=== PATIENT | female | born 1950 | race Hispanic/Latino ===

== ENCOUNTER 2016-08-06 12:59 | Emergency (ER) | payer MEDICARE ==
[2016-08-06 13:17] VITALS: RESP 20; TEMP 98.2; O2SAT 100
--- NOTE | 2016-08-06 13:39 | C.PDOC ---
History Of Present Illness 65 yr old female presents to the ER with PMHx of breast cancer, diagnosed in November 2015, had a course of chemo but the cancer persisted and has been on chemo theraphy for the last 7 weeks (unaware of chemo name). Patient states she has been feeling fine till 1 week ago when she developed a burning sensation to both hands, was prescribed Topamax by her doctor but states the symptom continued and last night she started to develop numbness along the edge of her lower lip. Patient states she looked up her symptoms online and was suggested it could be related to a stoke and decided to come in to the ED. Patient denies fever, chills, vision changes, chest pain, SOB, nausea, vomiting, abdominal pain , diarrhea, constipation, slurred speech, motor deficits, focal deficits, headache, weakness or numbness. Time Seen by Provider: 08/06/16 13:18 Chief Complaint (Nursing): Weakness/Neurological Deficit History Per: Patient History/Exam Limitations: no limitations Onset/Duration Of Symptoms: Sudden Onset (Last night ) Past Medical History Reviewed: Historical Data, Nursing Documentation, Vital Signs Vital Signs: Last Vital Signs Temp 98.2 F 08/06/16 13:16 Pulse 102 H 08/06/16 13:16 Resp 20 08/06/16 13:16 BP 146/91 H 08/06/16 13:16 Pulse Ox 100 08/06/16 13:44 Family History: States: No Known Family Hx Review Of Systems Except As Marked, All Systems Reviewed And Found Negative. Constitutional: Negative for: Fever, Chills Eyes: Negative for: Vision Change ENT: Positive for: Other ((+) Numbness along the edge of lower lip) Cardiovascular: Negative for: Chest Pain Respiratory: Negative for: Shortness of Breath Gastrointestinal: Negative for: Nausea, Vomiting, Abdominal Pain, Diarrhea, Constipation Musculoskeletal: Positive for: Other ((+) Burning sensation to the bilateral hands) Neurological: Negative for: Weakness, Numbness Physical Exam - Physical Exam Appears: Well, Non-toxic, No Acute Distress Skin: Warm, Dry, No Rash Head: Atraumatic, Normacephalic Eye(s): bilateral: Normal Inspection, PERRL, EOMI Nose: Normal Oral Mucosa: Moist Lips: Normal Appearing, No Swelling, No Contusion, No Abrasion, No Laceration, No Lesions Gingiva: Normal Appearing, No Erythema, No Ulceration Throat: Normal, No Erythema, No Exudate Neck: Normal, Normal ROM, Supple Chest: Symmetrical, No Tenderness Cardiovascular: Rhythm Regular, No Murmur Respiratory: Normal Breath Sounds, No Rales, No Rhonchi, No Stridor, No Wheezing Gastrointestinal/Abdominal: Normal Exam, Soft, No Tenderness, No Guarding, No Rebound Extremity: Normal ROM, No Swelling Neurological/Psych: Oriented x3, Normal Speech, Normal Motor ED Course And Treatment - Laboratory Results Result Diagrams: 08/06/16 14:13 08/06/16 14:13 Lab Interpretation: No Acute Changes O2 Sat by Pulse Oximetry: 100 Pulse Ox Interpretation: Normal - CT Scan/US Head Other Rad Studies (CT/US): Read By Radiologist, Radiology Report Reviewed CT/US Interpretation: Accession No. : [id number]. Patient Name / ID : BIB [id number] / [id number]. Exam Date : 08/06/2016 14:17:04 ( Approved ). Study Comment : Sex / Age : F / 65Y. Creator : Stephanie Bautista MD. Dictator : Stephanie Bautista MD. Cylinder Steamer : Oral Hygienist : Stephanie Bautista MD. Approver2 : Report Date : 08/06/2016 14:49:58. My Comment : . PROCEDURE: CT HEAD WITHOUT CONTRAST. HISTORY: R/O Bleed. COMPARISON: None available. TECHNIQUE: Axial computed tomography images were obtained through the head/brain without intravenous contrast. Radiation dose: Total exam DLP = 926.73 mGy-cm. This CT exam was performed using one or more of the following dose reduction techniques: Automated exposure control, adjustment of the mA and/or kV according to patient size, and/or use of iterative reconstruction technique. FINDINGS: HEMORRHAGE: No intracranial hemorrhage. BRAIN: No mass effect, midline shift, or edema. Approximately 9 x 8 mm extra- axial calcification at the left vertex (posterior frontal region) favored to reflect dural based calcification, less likely incidental meningioma. Scattered periventricular and subcortical white matter hypodensities, which are nonspecific, but often seen with chronic microvascular ischemic disease. Please note that MRI with diffusion imaging is more sensitive in the detection of acute ischemic event. VENTRICLES: No hydrocephalus. CALVARIUM: Unremarkable. PARANASAL SINUSES: Unremarkable as visualized. No significant inflammatory changes. MASTOID AIR CELLS: Unremarkable as visualized. No inflammatory changes. OTHER FINDINGS: Streak artifact from external artifact limits evaluation. IMPRESSION: Nonspecific white matter changes. Please note that MRI with diffusion imaging is more sensitive in the detection of acute ischemic event. Approximately 9 x 8 mm extra-axial calcification at the left vertex (posterior frontal region) favored to reflect dural based calcification, less likely incidental meningioma. This would not account for patient's presenting symptoms. 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 I have reviewed the chart and agree that the record accurately reflects my personal performance of the history, physical exam, medical decision making, and the department course for this patient. I have also personally directed, reviewed, and agree with the discharge instructions and disposition.
[2016-08-06 14:23] LABS: BASO # 0.1 K/uL (0.0-0.2); BASO % 2.6 % (0.0-2.0); EOS # 0.1 K/uL (0.0-0.7); EOS % 1.2 % (0.0-4.0); HEMATOCRIT 34.8 % (34.0-47.0); LYMPH # 0.9 K/uL (1.0-4.3); MEAN CELL VOLUME 94.8 fL (81.0-99.0); MEAN CORPUSCULAR HEMOGLOBIN 30.4 pg (27.0-31.0); MEAN CORPUSCULAR HGB CONC 32.1 g/dL (33.0-37.0); MONO # 0.1 K/uL (0.0-0.8); MONO % 2.5 % (0.0-10.0); NRBC % 0.2 % (0.0-2.0); RED CELL DISTRIBUTION WIDTH 15.7 % (11.5-14.5); WHITE BLOOD COUNT 5.1 K/uL (4.8-10.8)
[2016-08-06 14:30] LABS: CHLORIDE 106 mmol/L (98-107)
[2016-08-06 14:31] LABS: POTASSIUM 4.9 mmol/L (3.6-5.2); SODIUM 139 mmol/L (132-148)
[2016-08-06 14:33] LABS: ALB/GLOB RATIO 1.2 (1.0-2.1); ALKALINE PHOSPHATASE 48 U/L (38-126); ALT/SGPT 32 U/L (9-52); AST/SGOT 33 U/L (14-36); BLOOD UREA NITROGEN 17 mg/dL (7-17); CARBON DIOXIDE 21 mmol/L (22-30); GFR AFRICAN-AMERICAN > 60; GLUCOSE,RANDOM 125 mg/dL (65-105); TOTAL PROTEIN 7.4 g/dL (6.3-8.3); URINE BILIRUBIN NEGATIVE (NEGATIVE); URINE BLOOD NEGATIVE (NEGATIVE); URINE COLOR Yellow (YELLOW); URINE GLUCOSE (UA) NORMAL (Normal); URINE KETONE NEGATIVE (NEGATIVE); URINE LEUKOCYTE ESTERASE NEG Leu/uL (Negative); URINE PROTEIN NEGATIVE (NEGATIVE); URINE UROBILINOGEN NORMAL mg/dL (0.2-1.0); WBC URINE 1 /hpf (0-5)
[2016-08-06 14:34] LABS: CALCIUM 9.1 mg/dl (8.6-10.4); MAGNESIUM 1.6 mg/dL (1.6-2.3)
--- NOTE | 2016-08-06 14:51 | CT ---
PROCEDURE: CT HEAD WITHOUT CONTRAST. HISTORY: R/O Bleed COMPARISON: None available. TECHNIQUE: Axial computed tomography images were obtained through the head/brain without intravenous contrast. Radiation dose: Total exam DLP = 926.73 mGy-cm. This CT exam was performed using one or more of the following dose reduction techniques: Automated exposure control, adjustment of the mA and/or kV according to patient size, and/or use of iterative reconstruction technique. FINDINGS: HEMORRHAGE: No intracranial hemorrhage. BRAIN: No mass effect, midline shift, or edema. Approximately 9 x 8 mm extra-axial calcification at the left vertex (posterior frontal region) favored to reflect dural based calcification, less likely incidental meningioma. Scattered periventricular and subcortical white matter hypodensities, which are nonspecific, but often seen with chronic microvascular ischemic disease. Please note that MRI with diffusion imaging is more sensitive in the detection of acute ischemic event. VENTRICLES: No hydrocephalus. CALVARIUM: Unremarkable. PARANASAL SINUSES: Unremarkable as visualized. No significant inflammatory changes. MASTOID AIR CELLS: Unremarkable as visualized. No inflammatory changes. OTHER FINDINGS: Streak artifact from external artifact limits evaluation. IMPRESSION: Nonspecific white matter changes. Please note that MRI with diffusion imaging is more sensitive in the detection of acute ischemic event. Approximately 9 x 8 mm extra-axial calcification at the left vertex (posterior frontal region) favored to reflect dural based calcification, less likely incidental meningioma. This would not account for patient's presenting symptoms.
[2016-08-06 15:25] VITALS: BP 130/74; PULSE 74
== END 2016-08-06 15:24 | disposition home or self-care (01) ==
LOC: C.ER 12:59
DX: G62.0 Drug-induced polyneuropathy (principal)

== ENCOUNTER 2016-08-14 15:07 | Emergency (ER) | payer MEDICARE ==
--- NOTE | 2016-08-14 17:05 | C.PDOC ---
History Of Present Illness Pt c/o swelling of her RUE. Time Seen by Provider: 08/14/16 16:46 Chief Complaint (Nursing): Upper Extremity Problem/Injury History Per: Patient Onset/Duration Of Symptoms: Hrs (noticed upon waking up this morning.) Current Symptoms Are (Timing): Still Present Quality: Other (Swelling) Severity: Moderate Additional History Per: Prior Records Past Medical History Reviewed: Historical Data, Nursing Documentation, Vital Signs Vital Signs: Last Vital Signs Temp 98.5 F 08/14/16 15:28 Pulse 115 H 08/14/16 15:28 Resp 20 08/14/16 15:28 BP 157/94 H 08/14/16 15:28 Pulse Ox 100 08/14/16 17:07 - Medical History PMH: Malignancy Other Surgeries: Lymph node removal from right axilla about 4 months ago. Family History: States: Unknown Family Hx - Social History Hx Alcohol Use: Yes Hx Substance Use: No - Immunization History Hx Tetanus Toxoid Vaccination: No Hx Influenza Vaccination: Yes Hx Pneumococcal Vaccination: No Review Of Systems Except As Marked, All Systems Reviewed And Found Negative. Constitutional: Negative for: Fever, Weakness Cardiovascular: Negative for: Chest Pain Respiratory: Negative for: Shortness of Breath Gastrointestinal: Negative for: Vomiting, Abdominal Pain Musculoskeletal: Negative for: Neck Pain, Arm Pain Skin: Negative for: Rash Neurological: Negative for: Weakness, Seizures, Altered Mental Status Physical Exam - Physical Exam Appears: Non-toxic, No Acute Distress Skin: Normal Color, Warm, Dry Head: Atraumatic, Normacephalic Eye(s): bilateral: PERRL, EOMI Neck: Normal ROM, Supple Cardiovascular: Rhythm Regular Respiratory: Normal Breath Sounds, No Accessory Muscle Use Gastrointestinal/Abdominal: Soft, No Tenderness Extremity: Normal ROM, No Pedal Edema, Capillary Refill (wnl), No Deformity, Swelling (edema of right upper extremity.) Extremity: Bilateral: Normal Color And Temperature Pulses: Right Radial: Normal Neurological/Psych: Oriented x3, Normal Motor, Normal Sensation ED Course And Treatment O2 Sat by Pulse Oximetry: 100 Pulse Ox Interpretation: Normal Medical Decision Making Medical Decision Making: Pt most like has lympedema due to the previous axillary lymph node removal. I want to orders a RUE duplex to r/o DVT, however it is not available at this time. I instructed the pt to f/up with her doctor or return here in the morning to get the test done. Disposition Counseled Patient/Family Regarding: Diagnosis, Need For Followup - Disposition Referrals: Oumar Woodard DO [Staff Provider] - Carin Painting MD [Staff Provider] - Disposition: HOME/ ROUTINE Disposition Time: 17:14 Condition: FAIR Additional Instructions: Elevate your right arm. Follow up with your doctor for further evaluation and treatment, including an ultrasound to rule out a blood clot. Return to the ER if you develop redness, pain, worsening of symptoms or if you have any other concerns. Instructions: Lymphedema (ED) - Clinical Impression Clinical Impression: Lymphedema of right upper extremity
[2016-08-14 17:24] VITALS: BP 114/77; PULSE 98; RESP 18; TEMP 98.6; O2SAT 97
== END 2016-08-14 17:30 | disposition home or self-care (01) ==
LOC: C.ER 15:07
DX: I89.0 Lymphedema, not elsewhere classified (principal)

== ENCOUNTER 2018-01-09 08:51 | Day surgery (SDC) | payer MEDICARE ==
[2018-01-07 09:18] VITALS: BMI 35.2
[2018-01-07 10:59] LABS: BASO # 0.1 K/uL (0.0-0.2); BASO % 0.9 % (0.0-2.0); EOS # 0.2 K/uL (0.0-0.7); EOS % 2.2 % (0.0-4.0); HEMOGLOBIN 13.3 g/dL (11.0-16.0); LYMPH # 2.6 K/uL (1.0-4.3); MEAN CELL VOLUME 94.8 fL (81.0-99.0); MEAN CORPUSCULAR HEMOGLOBIN 32.4 pg (27.0-31.0); MEAN CORPUSCULAR HGB CONC 34.2 g/dL (33.0-37.0); MEAN PLATELET VOLUME 9.5 fL (7.2-11.7); MONO # 0.4 K/uL (0.0-0.8); MONO % 5.2 % (0.0-10.0); NEUT # 5.1 K/uL (1.8-7.0); NEUT % 60.7 % (50.0-75.0); NRBC % 0.1 % (0.0-2.0); RBC 4.09 Mil/uL (3.80-5.20); RED CELL DISTRIBUTION WIDTH 14.6 % (11.5-14.5); WHITE BLOOD COUNT 8.4 K/uL (4.8-10.8)
[2018-01-07 11:08] LABS: ALB/GLOB RATIO 1.1 (1.0-2.1); ALBUMIN 4.2 g/dL (3.5-5.0); ALT/SGPT 24 U/L (9-52); AST/SGOT 18 U/L (14-36); BLOOD UREA NITROGEN 17 mg/dL (7-17); CALCIUM 9.3 mg/dl (8.6-10.4); GFR NON-AFRICAN AMERICAN > 60
[2018-01-07 11:29] LABS: INR 1.1; PROTHROMBIN TIME 11.6 SECONDS (9.7-12.2)
--- NOTE | 2018-01-07 13:14 | RAD ---
HISTORY: Preoperative examination COMPARISON: No prior. TECHNIQUE: Chest PA and lateral FINDINGS: LINES AND TUBES: The left-sided MediPort terminates in the SVC. LUNG AND PLEURA: The lungs are well inflated and clear. No pleural effusion or pneumothorax. HEART AND MEDIASTINUM: The heart is not enlarged. The hilar and mediastinal contours are within normal limits. SKELETAL STRUCTURES: The bony structures are within normal limits for the patient's age. VISUALIZED UPPER ABDOMEN: Normal. OTHER FINDINGS: None. IMPRESSION: No active pulmonary disease.
[2018-01-09] MEDS ORDERED: ceFAZolin IV 1 gm in Dextrose 1 GM/50 ML BAG IVPB ONE ×2 (10:11→10:29)
[2018-01-09] MEDS ORDERED: Bupivacaine 0.25% 20 ML INJ IJ ONE (10:12)
[2018-01-09] MEDS ORDERED: Lidocaine/Epinephrine 1% 1:100000 10 ML IJ ONE (10:12)
[2018-01-09] MEDS ORDERED: Midazolam 2 MG/2 ML VIAL ONE (10:33)
[2018-01-09] MEDS ORDERED: Propofol 10 mg/ml Inj (20 ML) ONE (10:39)
[2018-01-09] MEDS ORDERED: Oxycodone/Acetaminophen 5/325 mg Tab PO PRN (11:25)
--- NOTE | 2018-01-09 12:46 | CARD ---
APPROVED REPORT Date of service: 01/07/2018 EKG Measurement Heart [id number] <Conclusion> Normal sinus rhythm Normal ECG
[2018-01-09 13:33] VITALS: O2SAT 99
[2018-01-09 14:06] VITALS: BP 114/65; PULSE 89; RESP 16; TEMP 97.8
--- NOTE | 2018-01-09 22:52 | OP ---
PROCEDURE DATE: 01/09/2018 PREOPERATIVE DIAGNOSES: 1. Soft tissue malignancy, status post resection and chemotherapy. 2. Port-A-Cath in place. POSTOPERATIVE DIAGNOSES: 1. Soft tissue malignancy, status post resection and chemotherapy. 2. Port-A-Cath in place. PROCEDURES DONE: 1. Port-A-Cath removal. 2. Capsulectomy. SURGEON: Juan Arzate MD BILLET WORKER: Jessica Louis DO, PGY-3 resident ANESTHESIA: General endotracheal tube anesthesia. ESTIMATED BLOOD LOSS: Around 10 mL. DRAINS: None. PATHOLOGY: Port-A-Cath with catheter was sent for the pathology, and the capsule was also sent for the pathology. COMPLICATIONS: None. INTRAOPERATIVE FINDINGS: The patient had a left subclavian catheter with matured capsule. DESCRIPTION OF THE PROCEDURE: On intraoperative steps, this is a 67-year-old female who was diagnosed with a soft tissue malignancy with a Port-A-Cath catheter and after consultation, the patient was consented for the removal of the Port-A-Cath, brought to the OR, placed supine on operating table. After induction of the anesthesia, the local anesthesia was injected after prepping and draping the left upper chest, and a transverse incision was made on the previous incision. The skin and subcutaneous tissue was incised. The lower flap was created to identify the capsule surrounding the Port-A-Cath that was excised, and the Port-A-Cath with catheter was sent off the table for the pathology. Hivxby-sy-deoic suture was placed at the entry of the catheter into the subclavian vein site to prevent the backbleeding and after that, the capsule was excised. Hemostasis was achieved. The wound was closed in multiple layers, deep subcu with 2-0 Vicryl, superficial subcu with 3-0 Vicryl, skin with a 4-0 Monocryl, and a dry sterile dressing was applied. The patient tolerated the procedure well. Count of the instrument and gauze was correct. There was no apparent complication. Juan Arzate MD
== END 2018-01-09 14:13 | disposition home or self-care (01) ==
LOC: C.SDS 08:51
PROVIDERS: ATTEND Surgery Surgical Critical Care
DX: Z01.818 Encounter for other preprocedural examination (principal); Z95.828 Presence of other vascular implants and grafts
CPT/HCPCS: 36415; 36590; 71046; 80053; 82948; 85025; 85610; 85730; 88304; 93005; J0690; J2250; J2704